=== PATIENT | female | born 1930 | race Caucasian/White ===

== ENCOUNTER 2018-02-03 15:39 | Inpatient (IN) | payer MEDICARE, OTHER ==
[~2018-02-03] VITALS: Ht 160 cm; Wt 72.8 kg
[2018-02-03] MEDS ORDERED: ALBUTEROL/IPRATROPIUM 2.5MG/0.5MG, 3 ML ONE (16:24)
[2018-02-03 16:30] LABS: BASOPHILS # (AUTO) 0.02 x10^3/uL (0-0.1); BASOPHILS % (AUTO) 0 % (0-1); EOSINOPHILS # (AUTO) 0.07 x10^3/uL (0-0.4); EOSINOPHILS % (AUTO) 1 % (1-7); LYMPHOCYTES # (AUTO) 1.14 x10^3/uL (1-3.4); LYMPHOCYTES % (AUTO) 14 % (22-44); MD NO; MEAN CORPUSCULAR HEMOGLOBIN 29.6 pg (27.0-34.8); MEAN CORPUSCULAR HGB CONC 33.2 g/dL (32.4-35.8); MEAN CORPUSCULAR VOLUME 89.3 fL (80-100); MEAN PLATELET VOLUME 9.2 fL (7.4-10.4); MONOCYTES # (AUTO) 0.52 x10^3/uL (0.2-0.8); MONOCYTES % (AUTO) 7 % (2-9); NEUTROPHILS % (AUTO) 78 % (42-75); PLATELET COUNT 260 x10^3/uL (130-400); RED BLOOD COUNT 5.55 x10^6/uL (3.82-5.3); RED CELL DISTRIBUTION WIDTH 14.9 % (9.6-15.2)
[2018-02-03] MEDS ORDERED: SODIUM CHLORIDE FLUSH 10ML SYR IVF ONE (16:30)
[2018-02-03] MEDS: ALBUTEROL/IPRATROPIUM 2.5MG/0.5MG, 3 ML NPPB ONE (16:30)
[2018-02-03 16:41] LABS: ALBUMIN 3.7 g/dL (3.4-5.0); ANION GAP 8 mmol/L (5-15); CALCIUM 8.6 mg/dL (8.5-10.1); CHLORIDE 107 mmol/L (98-107)
[2018-02-03 16:49] LABS: ALANINE AMINOTRANSFERASE 20 U/L (12-78); ALKALINE PHOSPHATASE 76 U/L (45-117); BILIRUBIN,TOTAL 0.5 mg/dL (0.2-1.0); CREATININE 1.26 mg/dL (0.55-1.02); TOTAL PROTEIN 7.2 g/dL (6.4-8.2); TROPONIN I < 0.015 ng/mL (0.000-0.045)
[2018-02-03] MEDS ORDERED: ALBU2.5V NEB (17:49)
[2018-02-03] MEDS ORDERED: DOXY50TA9 PO (17:49)
[2018-02-03] MEDS ORDERED: BUDE10.2 INH (17:51)
[2018-02-03] MEDS ORDERED: LISI40TA PO (17:51)
[2018-02-03] MEDS ORDERED: COLC0.6T37 PO (17:53)
[2018-02-03] MEDS ORDERED: NITR0.4T SL (17:53)
[2018-02-03] MEDS ORDERED: OMNIPAQUE 350 MG/ML, 100ML BOTTLE ONE (18:01)
[2018-02-03] MEDS ORDERED: DENO60DI IM (18:03)
[2018-02-03] MEDS ORDERED: LEVO25TA4 PO (18:03)
[2018-02-03] MEDS ORDERED: SODIUM CHLORIDE FLUSH 10ML SYR IVF PRN (20:00)
[2018-02-03 21:04] VITALS: BP 189/84
[2018-02-03] MEDS ORDERED: POLYETHYLENE GLYCOL 17 GM PACKET PO PRN (23:00)
[2018-02-03] MEDS ORDERED: ONDANSETRON 2MG/ML, 2ML IVPush PRN (23:00)
[2018-02-03] MEDS ORDERED: BISACODYL 10 MG SUPP PR PRN (23:00)
[2018-02-03] MEDS ORDERED: NITROGLYCERIN 0.4 MG BOTTLE (25 TABS) SL PRN (23:00)
[2018-02-03] MEDS ORDERED: hydrALAzine 20 MG/ML, 1ML IVPush PRN (23:00)
[2018-02-03] MEDS ORDERED: DOCUSATE 100 MG CAPSULE PO PRN (23:00)
[2018-02-03] MEDS: methylPREDNISolone SOD SUCC 40 MG/ML IVPush SCH (23:27)
[2018-02-03] MEDS: SODIUM CHLORIDE 0.9% 1,000 ML IV SCH (23:28)
[2018-02-03] MEDS: HEPARIN 5,000 UNITS/ML, 1ML SQ SCH (23:28)
[2018-02-03 23:50] LABS: TROPONIN I < 0.015 ng/mL (0.000-0.045)
[2018-02-04 00:02] VITALS: BP 158/77
[2018-02-04 05:39] LABS: ALANINE AMINOTRANSFERASE 18 U/L (12-78); ALBUMIN 3.1 g/dL (3.4-5.0); ANION GAP 7 mmol/L (5-15); CALCIUM 8.1 mg/dL (8.5-10.1); CHLORIDE 108 mmol/L (98-107)
[2018-02-04 05:42] LABS: TROPONIN I < 0.015 ng/mL (0.000-0.045)
[2018-02-04 05:43] LABS: ALKALINE PHOSPHATASE 66 U/L (45-117); BILIRUBIN,TOTAL 0.4 mg/dL (0.2-1.0); CHOL/HDL RATIO 3.1; CHOLESTEROL, TOTAL 195 mg/dL (140-239); CREATININE 1.15 mg/dL (0.55-1.02); HDL CHOL % 32 % (28-40); HDL CHOLESTEROL (DIRECT) 62 mg/dL (40-60); LDL CHOLESTEROL,CALCULATED 123 mg/dL (54-169); TOTAL PROTEIN 6.3 g/dL (6.4-8.2); TRIGLYCERIDES 50 mg/dL (50-200); VLDL CHOLESTEROL 10 mg/dL (0-25)
[2018-02-04 05:53] LABS: BASOPHILS % (AUTO) 0 % (0-1); EOSINOPHILS % (AUTO) 0 % (1-7); LYMPHOCYTES # (AUTO) 0.39 x10^3/uL (1-3.4); LYMPHOCYTES % (AUTO) 10 % (22-44); MD NO; MEAN CORPUSCULAR HEMOGLOBIN 29.7 pg (27.0-34.8); MEAN CORPUSCULAR HGB CONC 32.7 g/dL (32.4-35.8); MEAN CORPUSCULAR VOLUME 90.8 fL (80-100); MEAN PLATELET VOLUME 9.3 fL (7.4-10.4); MONOCYTES # (AUTO) 0.01 x10^3/uL (0.2-0.8); MONOCYTES % (AUTO) 0 % (2-9); NEUTROPHILS # (AUTO) 3.55 x10^3/uL (1.8-6.8); NEUTROPHILS % (AUTO) 90 % (42-75); PLATELET COUNT 202 x10^3/uL (130-400); RED BLOOD COUNT 5.09 x10^6/uL (3.82-5.3); RED CELL DISTRIBUTION WIDTH 14.4 % (9.6-15.2)
[2018-02-04] MEDS: methylPREDNISolone SOD SUCC 40 MG/ML IVPush SCH ×2 (06:03→11:03)
[2018-02-04] MEDS: HEPARIN 5,000 UNITS/ML, 1ML SQ SCH ×3 (06:03→23:42)
[2018-02-04] MEDS: ASPIRIN 81 MG TABLET EC PO SCH (06:03)
[2018-02-04 07:00] VITALS: BP 161/66
[2018-02-04] MEDS: ALBUTEROL SULFATE 2.5 MG/3 ML NPPB SCH ×3 (07:06→18:52)
[2018-02-04] MEDS ORDERED: REGADENOSON 0.4 MG/5 ML SYRINGE ONE (08:28)
[2018-02-04] MEDS: LEVOTHYROXINE 25 MCG TABLET PO SCH (08:47)
[2018-02-04] MEDS: FAMOTIDINE 20 MG TABLET PO SCH ×2 (11:03→20:11)
[2018-02-04] MEDS: SODIUM CHLORIDE 0.9% 1,000 ML IV SCH (12:20)
[2018-02-04 13:21] VITALS: BP 150/81
[2018-02-04] MEDS: LISINOPRIL 20 MG TABLET PO SCH (14:57)
[2018-02-04] MEDS: GUAIFENESIN 200 MG TABLET PO SCH ×2 (15:26→15:27)
[2018-02-04 19:33] VITALS: BP 186/72
[2018-02-04 20:08] VITALS: BP 166/75
[2018-02-05 01:01] VITALS: BP 149/78
[2018-02-05] MEDS: GUAIFENESIN 200 MG TABLET PO SCH ×4 (04:54→20:07)
[2018-02-05] MEDS: ASPIRIN 81 MG TABLET EC PO SCH (04:54)
[2018-02-05 05:18] LABS: BASOPHILS # (AUTO) 0.04 x10^3/uL (0-0.1); BASOPHILS % (AUTO) 1 % (0-1); EOSINOPHILS % (AUTO) 0 % (1-7); LYMPHOCYTES # (AUTO) 0.89 x10^3/uL (1-3.4); LYMPHOCYTES % (AUTO) 12 % (22-44); MD NO; MEAN CORPUSCULAR HEMOGLOBIN 29.4 pg (27.0-34.8); MEAN CORPUSCULAR HGB CONC 33.1 g/dL (32.4-35.8); MEAN CORPUSCULAR VOLUME 88.9 fL (80-100); MEAN PLATELET VOLUME 9.8 fL (7.4-10.4); MONOCYTES # (AUTO) 0.61 x10^3/uL (0.2-0.8); MONOCYTES % (AUTO) 8 % (2-9); NEUTROPHILS # (AUTO) 6.18 x10^3/uL (1.8-6.8); NEUTROPHILS % (AUTO) 80 % (42-75); PLATELET COUNT 215 x10^3/uL (130-400); RED BLOOD COUNT 4.99 x10^6/uL (3.82-5.3); RED CELL DISTRIBUTION WIDTH 14.5 % (9.6-15.2)
[2018-02-05 05:28] LABS: ALANINE AMINOTRANSFERASE 22 U/L (12-78); ALBUMIN 3.2 g/dL (3.4-5.0); ANION GAP 5 mmol/L (5-15); CALCIUM 8.1 mg/dL (8.5-10.1); CHLORIDE 109 mmol/L (98-107)
[2018-02-05 05:30] LABS: ALKALINE PHOSPHATASE 60 U/L (45-117); BILIRUBIN,TOTAL 0.4 mg/dL (0.2-1.0); TOTAL PROTEIN 5.9 g/dL (6.4-8.2)
[2018-02-05 06:37] VITALS: BP 154/69
[2018-02-05] MEDS: ALBUTEROL SULFATE 2.5 MG/3 ML NPPB SCH ×4 (07:05→20:00)
[2018-02-05] MEDS: LEVOTHYROXINE 25 MCG TABLET PO SCH (07:07)
[2018-02-05] MEDS: LISINOPRIL 20 MG TABLET PO SCH (07:08)
[2018-02-05] MEDS: HEPARIN 5,000 UNITS/ML, 1ML SQ SCH ×2 (08:27→16:35)
[2018-02-05] MEDS: FAMOTIDINE 20 MG TABLET PO SCH ×2 (08:29→20:07)
[2018-02-05] MEDS ORDERED: SODIUM CHLORIDE 0.9% 1,000 ML IV ONE (09:15)
[2018-02-05 10:05] VITALS: BP 162/67
[2018-02-05] MEDS: METOPROLOL TARTRATE 25 MG TABLET PO SCH ×2 (12:11→20:08)
[2018-02-05 13:12] VITALS: BP 129/58
[2018-02-05] MEDS ORDERED: METOPROLOL TARTRATE 25 MG TABLET PO SCH (18:00)
[2018-02-05 20:03] VITALS: BP 107/45
[2018-02-06 00:57] VITALS: BP 128/77
[2018-02-06] MEDS: HEPARIN 5,000 UNITS/ML, 1ML SQ SCH ×4 (01:02→22:48)
[2018-02-06 05:02] LABS: BASOPHILS # (AUTO) 0.01 x10^3/uL (0-0.1); BASOPHILS % (AUTO) 0 % (0-1); EOSINOPHILS # (AUTO) 0.02 x10^3/uL (0-0.4); EOSINOPHILS % (AUTO) 0 % (1-7); LYMPHOCYTES # (AUTO) 1.66 x10^3/uL (1-3.4); LYMPHOCYTES % (AUTO) 24 % (22-44); MD NO; MEAN CORPUSCULAR HEMOGLOBIN 29.2 pg (27.0-34.8); MEAN CORPUSCULAR HGB CONC 32.2 g/dL (32.4-35.8); MEAN CORPUSCULAR VOLUME 90.9 fL (80-100); MEAN PLATELET VOLUME 9.3 fL (7.4-10.4); MONOCYTES # (AUTO) 0.66 x10^3/uL (0.2-0.8); MONOCYTES % (AUTO) 9 % (2-9); NEUTROPHILS # (AUTO) 4.66 x10^3/uL (1.8-6.8); NEUTROPHILS % (AUTO) 67 % (42-75); PLATELET COUNT 193 x10^3/uL (130-400); RED BLOOD COUNT 4.81 x10^6/uL (3.82-5.3); RED CELL DISTRIBUTION WIDTH 14.8 % (9.6-15.2)
[2018-02-06 05:07] LABS: INTERNATIONAL NORMALIZED RATIO 0.97 (0.93-1.1)
[2018-02-06 05:14] LABS: CHLORIDE 107 mmol/L (98-107)
[2018-02-06 05:28] LABS: ALANINE AMINOTRANSFERASE 19 U/L (12-78); ALBUMIN 3.1 g/dL (3.4-5.0); ALKALINE PHOSPHATASE 55 U/L (45-117); ANION GAP 8 mmol/L (5-15); BILIRUBIN,TOTAL 0.5 mg/dL (0.2-1.0); CALCIUM 8.3 mg/dL (8.5-10.1); CREATININE 1.26 mg/dL (0.55-1.02); TOTAL PROTEIN 5.7 g/dL (6.4-8.2)
[2018-02-06 06:10] VITALS: BP 177/76
[2018-02-06] MEDS: GUAIFENESIN 200 MG TABLET PO SCH ×4 (06:12→20:53)
[2018-02-06] MEDS: ASPIRIN 81 MG TABLET EC PO SCH (06:12)
[2018-02-06] MEDS: METOPROLOL TARTRATE 25 MG TABLET PO SCH ×2 (06:13→17:02)
[2018-02-06 07:24] VITALS: BP 150/78
[2018-02-06] MEDS: LEVOTHYROXINE 25 MCG TABLET PO SCH (07:25)
[2018-02-06] MEDS: LISINOPRIL 20 MG TABLET PO SCH (07:26)
[2018-02-06] MEDS: ALBUTEROL SULFATE 2.5 MG/3 ML NPPB SCH ×4 (07:30→20:00)
[2018-02-06] MEDS: SODIUM CHLORIDE 0.9% 1,000 ML IV SCH ×3 (08:15→20:57)
[2018-02-06] MEDS: FAMOTIDINE 20 MG TABLET PO SCH ×2 (08:15→20:53)
[2018-02-06 08:25] VITALS: BP 160/66
[2018-02-06] MEDS ORDERED: VERAPAMIL 2.5 MG/ML, 2ML ONE (11:06)
[2018-02-06] MEDS ORDERED: TICAGRELOR 90 MG TABLET ONE (11:06)
[2018-02-06] MEDS ORDERED: FENTANYL PF 100 MCG/2ML ONE (11:06)
[2018-02-06] MEDS ORDERED: NITROGLYCERIN 5 MG/ML, 10ML ONE (11:06)
[2018-02-06] MEDS ORDERED: MIDAZOLAM 1 MG/ML, 5ML ONE (11:06)
[2018-02-06] MEDS ORDERED: LIDOCAINE 2%, 2ML ONE (11:07)
[2018-02-06] MEDS ORDERED: BIVALIRUDIN 250 MG ONE ×2 (11:07→13:13)
[2018-02-06] MEDS ORDERED: HEPARIN 1,000 UNITS/ML, 10ML ONE (11:07)
[2018-02-06] MEDS ORDERED: ASPIRIN 325 MG TABLET EC ONE (13:13)
[2018-02-06] MEDS ORDERED: BIVALIRUDIN 250 MG in DEXTROSE 5% 50 ML IV SCH (13:24)
[2018-02-06 13:49] VITALS: BP 147/71
[2018-02-06] MEDS: SODIUM CHLORIDE 0.45% 1,000 ML IV SCH ×2 (13:53→18:32)
[2018-02-06 20:45] VITALS: BP 148/73
[2018-02-06] MEDS: TICAGRELOR 90 MG TABLET PO SCH (20:54)
[2018-02-06 21:08] LABS: ALBUMIN 3.4 g/dL (3.4-5.0); ANION GAP 8 mmol/L (5-15); CALCIUM 7.8 mg/dL (8.5-10.1); CHLORIDE 104 mmol/L (98-107); CREATININE 1.41 mg/dL (0.55-1.02)
[2018-02-07 01:08] VITALS: BP 159/76
[2018-02-07] MEDS: ALBUTEROL SULFATE 2.5 MG/3 ML NPPB SCH ×5 (01:10→20:00)
[2018-02-07] MEDS: TEMPLATE NON-FORMULARY MED. (Budesonide/Formoterol Fumarate (Symbicort 160-4.5 Mcg Inhaler INH PRN ×2 (01:23→20:13)
[2018-02-07] MEDS: ACETAMINOPHEN 325 MG TABLET PO PRN ×2 (02:03→06:32)
[2018-02-07 05:22] LABS: BASOPHILS # (AUTO) 0.01 x10^3/uL (0-0.1); BASOPHILS % (AUTO) 0 % (0-1); EOSINOPHILS # (AUTO) 0.01 x10^3/uL (0-0.4); EOSINOPHILS % (AUTO) 0 % (1-7); LYMPHOCYTES # (AUTO) 0.36 x10^3/uL (1-3.4); LYMPHOCYTES % (AUTO) 4 % (22-44); MD NO; MEAN CORPUSCULAR HEMOGLOBIN 29.9 pg (27.0-34.8); MEAN CORPUSCULAR HGB CONC 33.1 g/dL (32.4-35.8); MEAN CORPUSCULAR VOLUME 90.5 fL (80-100); MEAN PLATELET VOLUME 9.1 fL (7.4-10.4); MONOCYTES # (AUTO) 0.66 x10^3/uL (0.2-0.8); MONOCYTES % (AUTO) 8 % (2-9); NEUTROPHILS # (AUTO) 7.66 x10^3/uL (1.8-6.8); NEUTROPHILS % (AUTO) 88 % (42-75); PLATELET COUNT 181 x10^3/uL (130-400); RED BLOOD COUNT 4.36 x10^6/uL (3.82-5.3); RED CELL DISTRIBUTION WIDTH 14.9 % (9.6-15.2)
[2018-02-07 05:26] LABS: ANION GAP 6 mmol/L (5-15); CALCIUM 7.2 mg/dL (8.5-10.1); CHLORIDE 108 mmol/L (98-107); CREATININE 1.22 mg/dL (0.55-1.02)
[2018-02-07] MEDS: GUAIFENESIN 200 MG TABLET PO SCH ×4 (06:21→20:14)
[2018-02-07] MEDS: ASPIRIN 81 MG TABLET EC PO SCH (06:21)
[2018-02-07] MEDS: METOPROLOL TARTRATE 25 MG TABLET PO SCH ×2 (06:22→17:07)
[2018-02-07] MEDS: HEPARIN 5,000 UNITS/ML, 1ML SQ SCH ×3 (07:30→19:27)
[2018-02-07] MEDS: ALBUTEROL SULFATE 2.5 MG/3 ML NPPB PRN ×2 (07:36→17:18)
[2018-02-07 07:43] VITALS: BP 113/63
[2018-02-07] MEDS: FAMOTIDINE 20 MG TABLET PO SCH ×2 (07:55→20:14)
[2018-02-07] MEDS: TICAGRELOR 90 MG TABLET PO SCH ×2 (07:55→20:15)
[2018-02-07] MEDS: LISINOPRIL 20 MG TABLET PO SCH (07:55)
[2018-02-07] MEDS: LEVOTHYROXINE 25 MCG TABLET PO SCH (07:59)
[2018-02-07] MEDS: SODIUM CHLORIDE 0.9% 1,000 ML IV SCH (07:59)
[2018-02-07 15:00] VITALS: BP 138/72
[2018-02-07 18:32] VITALS: BP 145/75
[2018-02-08 01:35] VITALS: BP 145/68
[2018-02-08 05:09] LABS: BASOPHILS # (AUTO) 0.01 x10^3/uL (0-0.1); BASOPHILS % (AUTO) 0 % (0-1); EOSINOPHILS # (AUTO) 0.04 x10^3/uL (0-0.4); EOSINOPHILS % (AUTO) 1 % (1-7); LYMPHOCYTES # (AUTO) 0.82 x10^3/uL (1-3.4); LYMPHOCYTES % (AUTO) 15 % (22-44); MD NO; MEAN CORPUSCULAR HEMOGLOBIN 29.2 pg (27.0-34.8); MEAN CORPUSCULAR HGB CONC 32.4 g/dL (32.4-35.8); MEAN CORPUSCULAR VOLUME 90.3 fL (80-100); MEAN PLATELET VOLUME 9.1 fL (7.4-10.4); MONOCYTES # (AUTO) 0.52 x10^3/uL (0.2-0.8); MONOCYTES % (AUTO) 10 % (2-9); NEUTROPHILS # (AUTO) 4.09 x10^3/uL (1.8-6.8); NEUTROPHILS % (AUTO) 75 % (42-75); PLATELET COUNT 168 x10^3/uL (130-400); RED CELL DISTRIBUTION WIDTH 14.7 % (9.6-15.2)
[2018-02-08 05:12] LABS: ALBUMIN 2.7 g/dL (3.4-5.0); ANION GAP 6 mmol/L (5-15); CALCIUM 7.7 mg/dL (8.5-10.1); CHLORIDE 108 mmol/L (98-107)
[2018-02-08 05:17] LABS: ALANINE AMINOTRANSFERASE 19 U/L (12-78); ALKALINE PHOSPHATASE 45 U/L (45-117); BILIRUBIN,TOTAL 0.5 mg/dL (0.2-1.0); CREATININE 1.09 mg/dL (0.55-1.02); TOTAL PROTEIN 4.8 g/dL (6.4-8.2)
[2018-02-08] MEDS: ASPIRIN 81 MG TABLET EC PO SCH (05:42)
[2018-02-08] MEDS: METOPROLOL TARTRATE 25 MG TABLET PO SCH (05:43)
[2018-02-08] MEDS: GUAIFENESIN 200 MG TABLET PO SCH ×2 (05:43→10:37)
[2018-02-08] MEDS: ALBUTEROL SULFATE 2.5 MG/3 ML NPPB SCH ×3 (06:41→14:09)
[2018-02-08 07:25] VITALS: BP 142/83
[2018-02-08] MEDS: HEPARIN 5,000 UNITS/ML, 1ML SQ SCH ×2 (07:30→14:13)
[2018-02-08] MEDS: FAMOTIDINE 20 MG TABLET PO SCH (08:13)
[2018-02-08] MEDS: TICAGRELOR 90 MG TABLET PO SCH (08:13)
[2018-02-08] MEDS: LISINOPRIL 20 MG TABLET PO SCH (08:14)
[2018-02-08] MEDS: LEVOTHYROXINE 25 MCG TABLET PO SCH (08:19)
[2018-02-08] MEDS ORDERED: METO25TA35 PO (11:32)
[2018-02-08] MEDS ORDERED: ASPI-621 PO (11:32)
[2018-02-08] MEDS ORDERED: PRED5TAB PO (11:32)
[2018-02-08] MEDS ORDERED: SIMV20TA PO (11:33)
[2018-02-08] MEDS ORDERED: DOXY100T PO (11:34)
[2018-02-08] MEDS ORDERED: DOXYCYCLINE 100MG TABLET PO SCH (12:00)
[2018-02-08 12:20] VITALS: BP 154/76
[2018-02-08] MEDS ORDERED: TICA90TA PO (14:44)
== END 2018-02-08 16:15 | disposition home or self-care (01) | DRG 246 ==
LOC: ED 18:18 → EDIP 19:58 → 5SO 20:59 → DCLOUNGE 02-08 15:53
PROVIDERS: ADMIT Hospitalist; ATTEND Hospitalist
PROC: 027034Z Dilation of Coronary Artery, One Artery with Drug-eluting Intraluminal Device, Percutaneous Approach (ICD-10-PCS; principal; 2018-02-06)
PROC: 4A023N7 Measurement of Cardiac Sampling and Pressure, Left Heart, Percutaneous Approach (ICD-10-PCS; 2018-02-06)
PROC: B2111ZZ Fluoroscopy of Multiple Coronary Arteries using Low Osmolar Contrast (ICD-10-PCS; 2018-02-06)
PROC: B2151ZZ Fluoroscopy of Left Heart using Low Osmolar Contrast (ICD-10-PCS; 2018-02-06)
DX: I25.110 Atherosclerotic heart disease of native coronary artery with unstable angina pectoris (principal); J96.01 Acute respiratory failure with hypoxia; N17.0 Acute kidney failure with tubular necrosis; E43 Unspecified severe protein-calorie malnutrition; I50.43 Acute on chronic combined systolic (congestive) and diastolic (congestive) heart failure; I24.9 Acute ischemic heart disease, unspecified; J44.1 Chronic obstructive pulmonary disease with (acute) exacerbation; D64.9 Anemia, unspecified; E03.9 Hypothyroidism, unspecified; R91.1 Solitary pulmonary nodule; E78.5 Hyperlipidemia, unspecified; E78.00 Pure hypercholesterolemia, unspecified; I27.20 Pulmonary hypertension, unspecified; E05.90 Thyrotoxicosis, unspecified without thyrotoxic crisis or storm; I11.0 Hypertensive heart disease with heart failure; Z87.891 Personal history of nicotine dependence; Z68.28 Body mass index [BMI] 28.0-28.9, adult; Z82.49 Family history of ischemic heart disease and other diseases of the circulatory system; Y93.89 Activity, other specified; Y92.89 Other specified places as the place of occurrence of the external cause; Y99.8 Other external cause status; Z88.1 Allergy status to other antibiotic agents
CPT/HCPCS: 36415; 71046; 71275; 78452; 80048; 80053; 80061; 82040; 83735; 83880; 84100; 84443; 84484; 85014; 85018; 85025; 85610; 93005; 93017; 93306; 93458; 94640; 99156; 99157; 99285; C1769; C1894; C9600; J0583; J1644; J2250; J2785; J3010; J3490; J7613; Q9967; A9502; C1725; C1874; C1887; C9898; J2920; J7030; J7512

== ENCOUNTER 2018-03-14 16:53 | Inpatient (IN) | payer MEDICARE ==
[~2018-03-14] VITALS: Ht 160 cm; Wt 61.8 kg
[~2018-03-14 16:53] MED LIST: ALBU2.5V NEB; ASPI-621 PO; BUDE10.2 INH; COLC0.6T37 PO; DENO60DI IM; DOXY100T PO; DOXY50TA9 PO; LEVO25TA4 PO; LISI40TA PO; METO25TA35 PO; NITR0.4T SL; PRED5TAB PO; SIMV20TA PO; TICA90TA PO
[2018-03-14 17:34] LABS: BASOPHILS # (AUTO) 0.01 x10^3/uL (0-0.1); BASOPHILS % (AUTO) 0 % (0-1); EOSINOPHILS # (AUTO) 0.13 x10^3/uL (0-0.4); EOSINOPHILS % (AUTO) 2 % (1-7); LYMPHOCYTES # (AUTO) 0.89 x10^3/uL (1-3.4); LYMPHOCYTES % (AUTO) 11 % (22-44); MD NO; MEAN CORPUSCULAR HEMOGLOBIN 29.8 pg (27.0-34.8); MEAN CORPUSCULAR HGB CONC 32.9 g/dL (32.4-35.8); MEAN CORPUSCULAR VOLUME 90.6 fL (80-100); MEAN PLATELET VOLUME 9.4 fL (7.4-10.4); MONOCYTES # (AUTO) 0.57 x10^3/uL (0.2-0.8); MONOCYTES % (AUTO) 7 % (2-9); NEUTROPHILS # (AUTO) 6.64 x10^3/uL (1.8-6.8); NEUTROPHILS % (AUTO) 81 % (42-75); PLATELET COUNT 246 x10^3/uL (130-400); RED CELL DISTRIBUTION WIDTH 15.6 % (9.6-15.2)
[2018-03-14 17:37] LABS: INTERNATIONAL NORMALIZED RATIO 0.92 (0.93-1.1); PROTHROMBIN TIME 9.6 Seconds (9.6-11.5)
[2018-03-14 17:41] LABS: ALANINE AMINOTRANSFERASE 23 U/L (12-78); ALBUMIN 3.7 g/dL (3.4-5.0); ANION GAP 7 mmol/L (5-15); CALCIUM 9.1 mg/dL (8.5-10.1); CHLORIDE 103 mmol/L (98-107); CREATININE 1.14 mg/dL (0.55-1.02)
[2018-03-14 17:45] LABS: ALKALINE PHOSPHATASE 70 U/L (45-117); BILIRUBIN,TOTAL 0.6 mg/dL (0.2-1.0); TOTAL PROTEIN 7.2 g/dL (6.4-8.2); TROPONIN I < 0.015 ng/mL (0.000-0.045)
[2018-03-14] MEDS ORDERED: METOPROLOL 1 MG/ML, 5ML ONE (18:13)
[2018-03-14] MEDS ORDERED: CHOL100011 PO (18:21)
[2018-03-14] MEDS ORDERED: SENN1TAB67 PO (18:21)
[2018-03-14] MEDS ORDERED: CRAN300T PO (18:22)
[2018-03-14] MEDS ORDERED: METOPROLOL 1 MG/ML, 5ML IVPush ONE (18:30)
[2018-03-14] MEDS ORDERED: NITROGLYCERIN OINT 2%, 1GM TP ONE ×2 (18:56→19:00)
[2018-03-14] MEDS ORDERED: OMNIPAQUE 350 MG/ML, 100ML BOTTLE ONE (19:19)
[2018-03-14] MEDS ORDERED: SODIUM CHLORIDE FLUSH 10ML SYR IVF PRN (19:30)
[2018-03-14] MEDS ORDERED: hydrALAzine 20 MG/ML, 1ML ONE (19:32)
[2018-03-14] MEDS ORDERED: ONDANSETRON 2MG/ML, 2ML IVPush PRN (20:00)
[2018-03-14] MEDS ORDERED: DOCUSATE 100 MG CAPSULE PO PRN (20:00)
[2018-03-14] MEDS ORDERED: ENALAPRILAT 1.25 MG/ML, 2ML IVPush PRN (20:00)
[2018-03-14] MEDS ORDERED: POLYETHYLENE GLYCOL 17 GM PACKET PO PRN (20:00)
[2018-03-14] MEDS ORDERED: hydrALAzine 20 MG/ML, 1ML IVPush PRN (20:00)
[2018-03-14] MEDS ORDERED: ACETAMINOPHEN 325 MG TABLET PO PRN (20:00)
[2018-03-14] MEDS ORDERED: NITROGLYCERIN 0.4 MG BOTTLE (25 TABS) SL PRN (20:00)
[2018-03-14] MEDS ORDERED: hydrALAzine 20 MG/ML, 1ML IV ONE (20:00)
[2018-03-14 22:00] VITALS: BP 169/83
[2018-03-14] MEDS: METOPROLOL TARTRATE 25 MG TABLET PO SCH (22:25)
[2018-03-14] MEDS: SIMVASTATIN 20 MG TABLET PO SCH (22:25)
[2018-03-14] MEDS: TICAGRELOR 90 MG TABLET PO SCH (22:25)
[2018-03-14] MEDS: SODIUM CHLORIDE FLUSH 10ML SYR IVF SCH (22:26)
[2018-03-15] VITALS (7 sets, daily range): BP systolic 119–178; BP diastolic 63–76
[2018-03-15] MEDS: ALBUTEROL SULFATE 2.5 MG/3 ML NPPB PRN ×2 (05:12→14:21)
[2018-03-15] MEDS: METOPROLOL TARTRATE 25 MG TABLET PO SCH ×2 (06:04→18:08)
[2018-03-15] MEDS: SODIUM CHLORIDE FLUSH 10ML SYR IVF SCH ×2 (08:57→20:56)
[2018-03-15] MEDS: SENNA/DOCUSATE TABLET PO SCH (08:57)
[2018-03-15] MEDS: TICAGRELOR 90 MG TABLET PO SCH ×2 (08:57→20:56)
[2018-03-15] MEDS: LISINOPRIL 20 MG TABLET PO SCH (08:57)
[2018-03-15] MEDS: FLUTICASONE/VILANTEROL 200-25MCG/INH INH SCH (11:06)
[2018-03-15 17:14] LABS: TROPONIN I < 0.015 ng/mL (0.000-0.045)
[2018-03-15] MEDS: SIMVASTATIN 20 MG TABLET PO SCH (20:56)
[2018-03-16 02:14] VITALS: BP 111/61
[2018-03-16] MEDS: METOPROLOL TARTRATE 25 MG TABLET PO SCH (05:50)
[2018-03-16 07:51] LABS: BASOPHILS # (AUTO) 0.01 x10^3/uL (0-0.1); BASOPHILS % (AUTO) 0 % (0-1); EOSINOPHILS # (AUTO) 0.11 x10^3/uL (0-0.4); EOSINOPHILS % (AUTO) 2 % (1-7); LYMPHOCYTES # (AUTO) 0.58 x10^3/uL (1-3.4); LYMPHOCYTES % (AUTO) 8 % (22-44); MD NO; MEAN CORPUSCULAR HEMOGLOBIN 29.5 pg (27.0-34.8); MEAN CORPUSCULAR HGB CONC 32.9 g/dL (32.4-35.8); MEAN CORPUSCULAR VOLUME 89.8 fL (80-100); MEAN PLATELET VOLUME 9.4 fL (7.4-10.4); MONOCYTES # (AUTO) 0.49 x10^3/uL (0.2-0.8); MONOCYTES % (AUTO) 7 % (2-9); NEUTROPHILS # (AUTO) 6.19 x10^3/uL (1.8-6.8); NEUTROPHILS % (AUTO) 84 % (42-75); PLATELET COUNT 236 x10^3/uL (130-400); RED BLOOD COUNT 4.76 x10^6/uL (3.82-5.3); RED CELL DISTRIBUTION WIDTH 15.6 % (9.6-15.2)
[2018-03-16 08:01] LABS: ANION GAP 6 mmol/L (5-15); CHLORIDE 104 mmol/L (98-107); CREATININE 1.24 mg/dL (0.55-1.02)
[2018-03-16] MEDS ORDERED: METO25TA35 PO (08:19)
[2018-03-16] MEDS: FLUTICASONE/VILANTEROL 200-25MCG/INH INH SCH (08:55)
[2018-03-16] MEDS: SODIUM CHLORIDE FLUSH 10ML SYR IVF SCH (08:55)
[2018-03-16] MEDS: TICAGRELOR 90 MG TABLET PO SCH (08:56)
[2018-03-16] MEDS: LISINOPRIL 20 MG TABLET PO SCH (08:56)
[2018-03-16] MEDS: SENNA/DOCUSATE TABLET PO SCH (08:56)
[2018-03-16 09:01] VITALS: BP 124/71
== END 2018-03-16 09:48 | disposition home or self-care (01) | DRG 305 ==
LOC: ED 17:54 → EDIP 19:24 → SUATTDRO 19:44 → 5SO 21:16 → DCLOUNGE 03-16 09:36
PROVIDERS: ADMIT Hospitalist; ATTEND Hospitalist
DX: I16.0 Hypertensive urgency (principal); J96.11 Chronic respiratory failure with hypoxia; I27.20 Pulmonary hypertension, unspecified; I50.32 Chronic diastolic (congestive) heart failure; E03.9 Hypothyroidism, unspecified; E11.9 Type 2 diabetes mellitus without complications; E78.00 Pure hypercholesterolemia, unspecified; I11.0 Hypertensive heart disease with heart failure; I25.118 Atherosclerotic heart disease of native coronary artery with other forms of angina pectoris; I25.2 Old myocardial infarction; I70.0 Atherosclerosis of aorta; J44.9 Chronic obstructive pulmonary disease, unspecified; Z95.5 Presence of coronary angioplasty implant and graft; Z96.659 Presence of unspecified artificial knee joint; R91.1 Solitary pulmonary nodule
CPT/HCPCS: 36415; 71045; 71275; 80048; 80053; 83880; 84484; 85025; 85610; 85730; 93005; 94640; 96374; 96375; J7613; Q9967; J0360

== ENCOUNTER → 2018-04-10 | Outpatient (CLI) | payer MEDICARE ==
[~2018-04-10] MED LIST changes: +CHOL100011 PO; +CRAN300T PO; +SENN1TAB67 PO
== END | disposition home or self-care (01) ==
LOC: CARD 14:14
PROVIDERS: ATTEND Internal Medicine Cardiovascular Disease
DX: J44.1 Chronic obstructive pulmonary disease with (acute) exacerbation (principal)
CPT/HCPCS: 94060; 94726; 94729

== ENCOUNTER → 2018-07-20 | Outpatient (CLI) | payer MEDICARE | END | disposition home or self-care (01) | LOC: CFH 12:48 | PROVIDERS: ATTEND Family Medicine | DX: J43.2 Centrilobular emphysema (principal); M48.54XA Collapsed vertebra, not elsewhere classified, thoracic region, initial encounter for fracture; Z88.1 Allergy status to other antibiotic agents; Z87.891 Personal history of nicotine dependence | CPT/HCPCS: 71250 ==

== ENCOUNTER 2018-11-06 10:22 | Inpatient (IN) | payer MEDICARE ==
[~2018-11-06] VITALS: Ht 157.5 cm; Wt 69.0 kg
[~2018-11-06 10:22] MED LIST changes: -ASPI-621 PO; +ASPI81TA45 PO
[2018-11-06] MEDS ORDERED: AZITHROMYCIN 500 MG in SODIUM CHLORIDE 0.9% 250 ML IVPB ONE (11:00)
[2018-11-06] MEDS ORDERED: CEFTRIAXONE PMX 1GM/50ML 50 ML IVPB ONE (11:00)
[2018-11-06] MEDS ORDERED: SODIUM CHLORIDE FLUSH 10ML SYR IVF ONE (11:00)
[2018-11-06 11:37] LABS: MEAN CORPUSCULAR HEMOGLOBIN 29.3 pg (27.0-34.8); MEAN CORPUSCULAR HGB CONC 32.7 g/dL (32.4-35.8); MEAN CORPUSCULAR VOLUME 89.3 fL (80-100); MEAN PLATELET VOLUME 8.5 fL (7.4-10.4); PLATELET COUNT 254 x10^3/uL (130-400); RED BLOOD COUNT 4.07 x10^6/uL (3.82-5.3); RED CELL DISTRIBUTION WIDTH 14.3 % (9.6-15.2)
[2018-11-06] MEDS ORDERED: CEFTRIAXONE PMX 1GM/50ML 50 ML ONE (11:37)
[2018-11-06 11:47] LABS: ALBUMIN 2.8 g/dL (3.4-5.0); ANION GAP 7 mmol/L (5-15); CHLORIDE 98 mmol/L (98-107)
[2018-11-06 11:54] LABS: ALANINE AMINOTRANSFERASE 82 U/L (12-78); ALKALINE PHOSPHATASE 79 U/L (45-117); BILIRUBIN,TOTAL 0.3 mg/dL (0.2-1.0); CREATININE 1.74 mg/dL (0.55-1.02); TOTAL PROTEIN 6.7 g/dL (6.4-8.2); TROPONIN I < 0.015 ng/mL (0.000-0.045)
--- NOTE | 2018-11-06 12:00 | NUR ---
PT AMBULATES WITH STEADY GAIT AND BALANCE IN RESTROOM. PT PUSHED IN WHEELCHAIR TO RESTROOM DUE TO OXYGEN TANK NEED. COLLECTED PT'S SPUTUM SAMPLE. PROVIDED PT MEDICATIONS PER EMAR. RADHAN. NO NEEDS EXPRESSED AT THIS TIME. PT SITTING ON GURNEY CONNECTED TO ALL MONITORS AND WATCHING TV. CALL LIGHT WITHIN REACH.
--- NOTE | 2018-11-06 12:06 | NUR ---
LATE NOTE ENTRY FOR 1022 PT BROUGHT IN BY EMS WITH C/O SOB ON EXERTION WITH PRODUCTIVE COUGH FOR THREE DAYS. PT HAS UNLABORED RESPIRATIONS EQUAL BILATERALLY AND IS WEARING 2L OXYGEN VIA NASAL CANNULA. PT WEARS 2L OXYGEN VIA NASAL CANNULA / AT HOME. PT IS AOX4, HAS STEADY GAIT AND BALANCE, AND SKIN IS PINK, WARM, AND DRY. PT PROVIDED SPUTUM SAMPLE THAT IS THICK, GREEN, AND WHITE. NADN. PT CONNECTED TO ALL MONITORS. ALL SAFETY MEASURES IN PLACE. NO NEEDS EXPRESSED AT THIS TIME.
[2018-11-06 12:07] LABS: BASOPHILS % (AUTO) 0 % (0-1); EOSINOPHILS % (AUTO) 0 % (1-7); LYMPHOCYTES # (AUTO) 0.36 x10^3/uL (1-3.4); LYMPHOCYTES % (AUTO) 2 % (22-44); MD SCAN; MONOCYTES # (AUTO) 0.62 x10^3/uL (0.2-0.8); MONOCYTES % (AUTO) 4 % (2-9); NEUTROPHILS # (AUTO) 14.73 x10^3/uL (1.8-6.8); NEUTROPHILS % (AUTO) 94 % (42-75)
--- NOTE | 2018-11-06 12:59 | NUR ---
Rocephin complete. Zithromax hung. Diet tray order per patient request and MD order. Provided with water. No other needs.
[2018-11-06] MEDS ORDERED: SODIUM CHLORIDE FLUSH 10ML SYR IVF PRN (13:00)
[2018-11-06] MEDS: SODIUM CHLORIDE 0.9% 1,000 ML IV SCH (13:27)
[2018-11-06] MEDS ORDERED: SODIUM CHLORIDE 0.9% 1,000ML IVBOLUS ONE (13:30)
[2018-11-06] MEDS ORDERED: NITROGLYCERIN 0.4 MG BOTTLE (25 TABS) SL PRN (13:30)
[2018-11-06] MEDS: ALBUTEROL/IPRATROPIUM 2.5MG/0.5MG, 3 ML HHN SCH ×2 (13:30→19:30)
[2018-11-06] MEDS ORDERED: (Budesonide/Formoterol Fumarate (Symbicort 160-4.5 Mcg Inhaler INH PRN (13:30)
[2018-11-06] MEDS ORDERED: LABETALOL 5MG/ML, 20ML IVPush PRN (13:30)
[2018-11-06] MEDS ORDERED: GUAIFENESIN/DM 200-20MG, 10ML UDC PO PRN (13:30)
[2018-11-06] MEDS ORDERED: ACETAMINOPHEN 325 MG TABLET PO PRN (13:30)
[2018-11-06] MEDS ORDERED: ALBUTEROL SULFATE 2.5 MG/3 ML NEB PRN (13:30)
[2018-11-06] MEDS ORDERED: ONDANSETRON 2MG/ML, 2ML IVPush PRN (13:30)
--- NOTE | 2018-11-06 13:36 | NUR ---
PT HAS PIV MEDS INFUSING PER EMAR. NADN. PT RESTING ON GURNEY CONNECTED TO ALL MONITORS AND ALL SAFETY MEASURES IN PLACE. CALL LIGHT IS WITHIN REACH. PT REQUESTING FOOD.
[2018-11-06] MEDS ORDERED: ACET-1600 PO (13:45)
[2018-11-06] MEDS ORDERED: CLOP75TA PO (13:45)
[2018-11-06] MEDS ORDERED: FLUT1BLS3 INH (13:45)
--- NOTE | 2018-11-06 13:55 | NUR ---
PROVIDED PT CRACKERS AND WATER. PT APPRECIATIVE.
--- NOTE | 2018-11-06 14:16 | NUR ---
PROVIDED REPORT TO [facility] G[facility]BLE. ALL QUESTIONS ANSWERED. PT READY TO TRANSFER TO FLOOR FROM ED.
[2018-11-06] MEDS: HEPARIN 5,000 UNITS/ML, 1ML SQ SCH ×2 (14:30→22:30)
[2018-11-06 15:00] VITALS: BP 154/64
[2018-11-06] MEDS ORDERED: CEFTRIAXONE PMX 1GM/50ML 50 ML IV SCH (15:00)
[2018-11-06] MEDS ORDERED: AZITHROMYCIN 500 MG in SODIUM CHLORIDE 0.9% 250 ML IV SCH (15:00)
[2018-11-06] MEDS: methylPREDNISolone SOD SUCC 125 MG/2 ML IVPush SCH ×2 (15:13→21:10)
[2018-11-06] MEDS: GUAIFENESIN 200 MG TABLET PO SCH ×2 (15:17→21:11)
[2018-11-06 15:22] LABS: TROPONIN I < 0.015 ng/mL (0.000-0.045)
--- NOTE | 2018-11-06 16:51 | NUR ---
LATE NOTE ENTRY FOR 1420 PT TRANSFERED TO FLOOR FROM ED AND LEFT WITH ALL PERSONAL BELONGINGS. PT LEFT PIV MEDS INFUSING PER EMAR.
[2018-11-06 16:53] LABS: RAPID INFLUENZA A Negative (Negative); RAPID INFLUENZA B Negative (Negative)
[2018-11-06] MEDS: METOPROLOL TARTRATE 25 MG TABLET PO SCH (17:31)
[2018-11-06 19:57] VITALS: BP 149/71
[2018-11-06] MEDS: TICAGRELOR 90 MG TABLET PO SCH (21:00)
[2018-11-06 21:07] LABS: TROPONIN I < 0.015 ng/mL (0.000-0.045)
[2018-11-06] MEDS: SIMVASTATIN 20 MG TABLET PO SCH (21:11)
[2018-11-07 01:55] VITALS: BP 137/72
[2018-11-07] MEDS: methylPREDNISolone SOD SUCC 125 MG/2 ML IVPush SCH ×4 (03:30→21:39)
[2018-11-07] MEDS ORDERED: LEVOTHYROXINE 50 MCG TABLET ONE (05:19)
[2018-11-07] MEDS: LEVOTHYROXINE 50 MCG TABLET PO SCH (05:20)
[2018-11-07] MEDS: SODIUM CHLORIDE 0.9% 1,000 ML IV SCH (05:20)
[2018-11-07] MEDS: GUAIFENESIN 200 MG TABLET PO SCH ×4 (05:20→21:38)
[2018-11-07] MEDS: METOPROLOL TARTRATE 25 MG TABLET PO SCH ×2 (05:21→17:55)
[2018-11-07] MEDS: ASPIRIN 81 MG TABLET EC PO SCH (05:21)
[2018-11-07 05:41] LABS: MEAN CORPUSCULAR HEMOGLOBIN 29.5 pg (27.0-34.8); MEAN CORPUSCULAR HGB CONC 32.7 g/dL (32.4-35.8); MEAN CORPUSCULAR VOLUME 90.2 fL (80-100); MEAN PLATELET VOLUME 8.8 fL (7.4-10.4); PLATELET COUNT 257 x10^3/uL (130-400); RED BLOOD COUNT 3.94 x10^6/uL (3.82-5.3)
[2018-11-07 05:51] LABS: ALBUMIN 2.5 g/dL (3.4-5.0); ANION GAP 9 mmol/L (5-15); CALCIUM 7.4 mg/dL (8.5-10.1); CHLORIDE 106 mmol/L (98-107)
[2018-11-07 05:55] LABS: ALANINE AMINOTRANSFERASE 69 U/L (12-78); ALKALINE PHOSPHATASE 75 U/L (45-117); BILIRUBIN,TOTAL 0.3 mg/dL (0.2-1.0); CREATININE 1.62 mg/dL (0.55-1.02); TOTAL PROTEIN 6.2 g/dL (6.4-8.2)
[2018-11-07 05:59] LABS: BASOPHILS % (AUTO) 0 % (0-1); EOSINOPHILS % (AUTO) 0 % (1-7); LYMPHOCYTES # (AUTO) 0.41 x10^3/uL (1-3.4); LYMPHOCYTES % (AUTO) 3 % (22-44); MD SCAN; MONOCYTES # (AUTO) 0.04 x10^3/uL (0.2-0.8); MONOCYTES % (AUTO) 0 % (2-9); NEUTROPHILS # (AUTO) 12.11 x10^3/uL (1.8-6.8); NEUTROPHILS % (AUTO) 96 % (42-75)
[2018-11-07] MEDS: HEPARIN 5,000 UNITS/ML, 1ML SQ SCH ×3 (06:30→22:30)
[2018-11-07 06:50] VITALS: BP 138/69
[2018-11-07] MEDS: ALBUTEROL SULFATE 2.5 MG/3 ML NPPB SCH ×2 (08:00→20:12)
[2018-11-07] MEDS: BUDESONIDE 0.5 MG/2 ML INHA INH SCH ×2 (08:00→20:12)
[2018-11-07] MEDS: TICAGRELOR 90 MG TABLET PO SCH ×2 (08:16→21:00)
[2018-11-07] MEDS: CHOLECALCIFEROL 1,000 UNIT TABLET PO SCH (08:55)
[2018-11-07] MEDS: SENNA/DOCUSATE TABLET PO SCH (08:56)
[2018-11-07] MEDS ORDERED: TEMPLATE NON-FORMULARY MED. (Cranberry Extract** (Cranberry**) 300 MG) PO SCH (09:00)
[2018-11-07] MEDS: CEFTRIAXONE PMX 1GM/50ML 50 ML IV SCH (11:57)
[2018-11-07] MEDS: AZITHROMYCIN 500 MG in SODIUM CHLORIDE 0.9% 250 ML IV SCH (13:12)
[2018-11-07] MEDS ORDERED: SODIUM CHLORIDE 0.9% 1,000 ML IV SCH (13:27)
[2018-11-07 14:56] VITALS: BP 156/80
[2018-11-07 19:47] VITALS: BP 134/72
[2018-11-07] MEDS: SIMVASTATIN 20 MG TABLET PO SCH (21:39)
[2018-11-08 02:11] VITALS: BP 139/63
[2018-11-08] MEDS: methylPREDNISolone SOD SUCC 125 MG/2 ML IVPush SCH (04:06)
[2018-11-08 05:37] VITALS: BP 150/72
[2018-11-08] MEDS: METOPROLOL TARTRATE 25 MG TABLET PO SCH ×2 (05:38→18:19)
[2018-11-08] MEDS: GUAIFENESIN 200 MG TABLET PO SCH ×4 (05:38→20:39)
[2018-11-08] MEDS: ASPIRIN 81 MG TABLET EC PO SCH (05:39)
[2018-11-08 06:06] LABS: MEAN CORPUSCULAR HEMOGLOBIN 28.9 pg (27.0-34.8); MEAN CORPUSCULAR HGB CONC 32.4 g/dL (32.4-35.8); MEAN CORPUSCULAR VOLUME 89.1 fL (80-100); MEAN PLATELET VOLUME 8.8 fL (7.4-10.4); PLATELET COUNT 282 x10^3/uL (130-400); RED BLOOD COUNT 3.67 x10^6/uL (3.82-5.3); RED CELL DISTRIBUTION WIDTH 14.3 % (9.6-15.2)
[2018-11-08 06:14] LABS: ALANINE AMINOTRANSFERASE 61 U/L (12-78); ALBUMIN 2.6 g/dL (3.4-5.0); ANION GAP 9 mmol/L (5-15); CALCIUM 7.8 mg/dL (8.5-10.1); CHLORIDE 107 mmol/L (98-107); CREATININE 1.73 mg/dL (0.55-1.02)
[2018-11-08 06:17] LABS: ALKALINE PHOSPHATASE 70 U/L (45-117); BILIRUBIN,TOTAL 0.2 mg/dL (0.2-1.0)
[2018-11-08 06:25] LABS: BASOPHILS # (AUTO) 0.02 x10^3/uL (0-0.1); BASOPHILS % (AUTO) 0 % (0-1); EOSINOPHILS % (AUTO) 0 % (1-7); LYMPHOCYTES # (AUTO) 0.39 x10^3/uL (1-3.4); LYMPHOCYTES % (AUTO) 3 % (22-44); MD SCAN; MONOCYTES # (AUTO) 0.24 x10^3/uL (0.2-0.8); MONOCYTES % (AUTO) 2 % (2-9); NEUTROPHILS # (AUTO) 13.08 x10^3/uL (1.8-6.8); NEUTROPHILS % (AUTO) 95 % (42-75)
[2018-11-08 07:35] VITALS: BP 161/85
[2018-11-08] MEDS: SENNA/DOCUSATE TABLET PO SCH (08:27)
[2018-11-08] MEDS: HEPARIN 5,000 UNITS/ML, 1ML SQ SCH ×3 (08:27→22:29)
[2018-11-08] MEDS: LEVOTHYROXINE 50 MCG TABLET PO SCH (08:28)
[2018-11-08] MEDS: TICAGRELOR 90 MG TABLET PO SCH ×3 (08:29→20:40)
[2018-11-08] MEDS: FLUTICASONE INH SCH (08:55)
[2018-11-08] MEDS: VILANTEROL INH SCH (08:55)
[2018-11-08] MEDS: UMECLIDINIUM INH SCH (08:55)
[2018-11-08] MEDS: CHOLECALCIFEROL 1,000 UNIT TABLET PO SCH (08:57)
[2018-11-08] MEDS: BUDESONIDE 0.5 MG/2 ML INHA INH SCH ×2 (09:00→20:33)
[2018-11-08] MEDS: ALBUTEROL SULFATE 2.5 MG/3 ML NPPB SCH ×2 (09:00→20:33)
[2018-11-08] MEDS: CEFTRIAXONE PMX 1GM/50ML 50 ML IV SCH (12:13)
[2018-11-08] MEDS: AZITHROMYCIN 500 MG in SODIUM CHLORIDE 0.9% 250 ML IV SCH (13:17)
[2018-11-08] MEDS: SODIUM CHLORIDE 0.9% 1,000 ML IV SCH (13:18)
[2018-11-08 14:49] VITALS: BP 137/77
[2018-11-08 19:42] VITALS: BP 173/72
[2018-11-08 20:06] LABS: MICROSCOPIC INDICATED
[2018-11-08 20:15] LABS: CREATININE,URINE RANDOM 16.9 mg/dL
[2018-11-08] MEDS: SIMVASTATIN 20 MG TABLET PO SCH (20:39)
[2018-11-08 20:45] LABS: OSMOLALITY,URINE 210 mOsm/kg (500-850)
[2018-11-09 02:03] VITALS: BP 171/60
[2018-11-09] MEDS: SODIUM CHLORIDE 0.9% 1,000 ML IV SCH (02:12)
[2018-11-09] MEDS: GUAIFENESIN 200 MG TABLET PO SCH ×4 (05:20→20:38)
[2018-11-09] MEDS: METOPROLOL TARTRATE 25 MG TABLET PO SCH ×2 (05:20→17:46)
[2018-11-09] MEDS: ASPIRIN 81 MG TABLET EC PO SCH (05:20)
[2018-11-09 05:22] VITALS: BP 166/80
[2018-11-09 05:36] LABS: BASOPHILS # (AUTO) 0.01 x10^3/uL (0-0.1); BASOPHILS % (AUTO) 0 % (0-1); EOSINOPHILS % (AUTO) 0 % (1-7); LYMPHOCYTES # (AUTO) 0.78 x10^3/uL (1-3.4); LYMPHOCYTES % (AUTO) 7 % (22-44); MD NO; MEAN CORPUSCULAR HEMOGLOBIN 30.1 pg (27.0-34.8); MEAN CORPUSCULAR HGB CONC 34.1 g/dL (32.4-35.8); MEAN CORPUSCULAR VOLUME 88.2 fL (80-100); MEAN PLATELET VOLUME 8.7 fL (7.4-10.4); MONOCYTES # (AUTO) 0.71 x10^3/uL (0.2-0.8); MONOCYTES % (AUTO) 7 % (2-9); NEUTROPHILS # (AUTO) 9.18 x10^3/uL (1.8-6.8); NEUTROPHILS % (AUTO) 86 % (42-75); PLATELET COUNT 250 x10^3/uL (130-400); RED CELL DISTRIBUTION WIDTH 14.9 % (9.6-15.2)
[2018-11-09 05:44] LABS: ALBUMIN 2.2 g/dL (3.4-5.0); ANION GAP 5 mmol/L (5-15); CALCIUM 7.1 mg/dL (8.5-10.1); CHLORIDE 111 mmol/L (98-107)
[2018-11-09 05:58] LABS: % IRON SATURATION 38 % (20-55); ALANINE AMINOTRANSFERASE 48 U/L (12-78); ALKALINE PHOSPHATASE 57 U/L (45-117); BILIRUBIN,TOTAL 0.7 mg/dL (0.2-1.0); CREATININE 1.95 mg/dL (0.55-1.02); IRON LEVEL 61 mcg/dL (50-170); TOTAL IRON BINDING CAPACITY 160 mcg/dL (250-450)
[2018-11-09] MEDS: HEPARIN 5,000 UNITS/ML, 1ML SQ SCH ×3 (06:54→22:30)
[2018-11-09] MEDS: TICAGRELOR 90 MG TABLET PO SCH (07:22)
[2018-11-09] MEDS: ALBUTEROL SULFATE 2.5 MG/3 ML NPPB SCH ×3 (07:39→20:56)
[2018-11-09] MEDS: BUDESONIDE 0.5 MG/2 ML INHA INH SCH ×2 (07:39→20:56)
[2018-11-09] MEDS: CHOLECALCIFEROL 1,000 UNIT TABLET PO SCH (07:53)
[2018-11-09] MEDS: LEVOTHYROXINE 50 MCG TABLET PO SCH (07:53)
[2018-11-09] MEDS: SENNA/DOCUSATE TABLET PO SCH (07:53)
[2018-11-09] MEDS: VILANTEROL INH SCH (07:54)
[2018-11-09] MEDS: FLUTICASONE INH SCH (07:54)
[2018-11-09] MEDS: UMECLIDINIUM INH SCH (07:54)
[2018-11-09 08:00] VITALS: BP 171/80
[2018-11-09] MEDS: AMLODIPINE 2.5 MG TABLET PO SCH (11:25)
[2018-11-09] MEDS: CEFTRIAXONE PMX 1GM/50ML 50 ML IV SCH (11:25)
[2018-11-09] MEDS: AZITHROMYCIN 500 MG in SODIUM CHLORIDE 0.9% 250 ML IV SCH (12:37)
[2018-11-09 14:00] VITALS: BP 164/67
[2018-11-09] MEDS: SIMVASTATIN 20 MG TABLET PO SCH (20:38)
[2018-11-09 20:45] VITALS: BP 179/100
[2018-11-09] MEDS ORDERED: CEFDINIR 300 MG CAPSULE PO SCH (21:00)
[2018-11-09] MEDS: ALBUTEROL SULFATE 2.5 MG/3 ML HHN SCH (21:30)
[2018-11-10 02:44] VITALS: BP 180/95
[2018-11-10] MEDS: ALBUTEROL SULFATE 2.5 MG/3 ML HHN SCH ×3 (03:30→14:00)
[2018-11-10] MEDS: GUAIFENESIN 200 MG TABLET PO SCH ×2 (05:22→11:00)
[2018-11-10] MEDS: ASPIRIN 81 MG TABLET EC PO SCH (05:22)
[2018-11-10] MEDS: METOPROLOL TARTRATE 25 MG TABLET PO SCH (05:23)
[2018-11-10] MEDS: HEPARIN 5,000 UNITS/ML, 1ML SQ SCH ×2 (05:24→13:54)
[2018-11-10 05:27] LABS: BASOPHILS # (AUTO) 0.01 x10^3/uL (0-0.1); BASOPHILS % (AUTO) 0 % (0-1); EOSINOPHILS % (AUTO) 0 % (1-7); LYMPHOCYTES # (AUTO) 1.05 x10^3/uL (1-3.4); LYMPHOCYTES % (AUTO) 11 % (22-44); MD NO; MEAN CORPUSCULAR HGB CONC 32.6 g/dL (32.4-35.8); MEAN CORPUSCULAR VOLUME 88.9 fL (80-100); MEAN PLATELET VOLUME 8.6 fL (7.4-10.4); MONOCYTES # (AUTO) 0.86 x10^3/uL (0.2-0.8); MONOCYTES % (AUTO) 9 % (2-9); NEUTROPHILS # (AUTO) 7.62 x10^3/uL (1.8-6.8); NEUTROPHILS % (AUTO) 80 % (42-75); PLATELET COUNT 251 x10^3/uL (130-400); RED BLOOD COUNT 3.67 x10^6/uL (3.82-5.3); RED CELL DISTRIBUTION WIDTH 14.5 % (9.6-15.2)
[2018-11-10 05:30] LABS: ALBUMIN 2.4 g/dL (3.4-5.0); ANION GAP 6 mmol/L (5-15); CALCIUM 7.3 mg/dL (8.5-10.1); CHLORIDE 108 mmol/L (98-107)
[2018-11-10 05:31] LABS: CREATININE 1.73 mg/dL (0.55-1.02)
[2018-11-10] MEDS ORDERED: LEVOTHYROXINE 50 MCG TABLET PO SCH (06:00)
[2018-11-10 07:30] VITALS: BP 157/69
[2018-11-10] MEDS: AMLODIPINE 2.5 MG TABLET PO SCH (08:31)
[2018-11-10] MEDS: SENNA/DOCUSATE TABLET PO SCH (08:31)
[2018-11-10] MEDS: FLUTICASONE INH SCH (08:32)
[2018-11-10] MEDS: VILANTEROL INH SCH (08:32)
[2018-11-10] MEDS: CHOLECALCIFEROL 1,000 UNIT TABLET PO SCH (08:32)
[2018-11-10] MEDS: UMECLIDINIUM INH SCH (08:32)
[2018-11-10] MEDS ORDERED: AZITHROMYCIN 500 MG TABLET PO SCH (09:00)
[2018-11-10] MEDS: BUDESONIDE 0.5 MG/2 ML INHA INH SCH (09:00)
[2018-11-10] MEDS ORDERED: CALCITRIOL 0.25 MCG CAPSULE PO SCH (09:00)
[2018-11-10] MEDS ORDERED: BUDESONIDE 0.5 MG/2 ML INHA NPPB SCH (09:00)
[2018-11-10] MEDS ORDERED: PRED20TA PO ×2 (13:43)
[2018-11-10] MEDS ORDERED: CEFD300C37 PO (13:43)
[2018-11-10] MEDS ORDERED: AMLO2.5T3 PO (13:43)
== END 2018-11-10 16:10 | disposition home or self-care (01) | DRG 871 ==
LOC: ED 10:35 → EDIP 12:57 → 3NE 14:24
PROVIDERS: ADMIT Internal Medicine; ATTEND Internal Medicine
DX: A41.9 Sepsis, unspecified organism (principal); J15.9 Unspecified bacterial pneumonia; J96.21 Acute and chronic respiratory failure with hypoxia; J44.1 Chronic obstructive pulmonary disease with (acute) exacerbation; I13.0 Hypertensive heart and chronic kidney disease with heart failure and stage 1 through stage 4 chronic kidney disease, or unspecified chronic kidney disease; E87.1 Hypo-osmolality and hyponatremia; E44.1 Mild protein-calorie malnutrition; J44.0 Chronic obstructive pulmonary disease with (acute) lower respiratory infection; N17.9 Acute kidney failure, unspecified; D64.9 Anemia, unspecified; E78.00 Pure hypercholesterolemia, unspecified; E78.5 Hyperlipidemia, unspecified; I25.10 Atherosclerotic heart disease of native coronary artery without angina pectoris; N18.3 Chronic kidney disease, stage 3 (moderate); N25.0 Renal osteodystrophy; I50.9 Heart failure, unspecified; Z95.5 Presence of coronary angioplasty implant and graft; Z99.81 Dependence on supplemental oxygen; Z87.891 Personal history of nicotine dependence; I25.2 Old myocardial infarction; Z68.27 Body mass index [BMI] 27.0-27.9, adult
CPT/HCPCS: 36415; 71045; 76770; 80053; 80069; 81001; 82306; 82436; 82570; 82728; 83540; 83550; 83605; 83735; 83880; 83935; 83970; 84100; 84133; 84145; 84156; 84300; 84484; 84550; 85025; 87040; 87070; 87205; 87400; 93005; 94640; 96365; 99285; G0378; J0456; J0696; J1644; J7613; J7626; J2930; J7030; J7050; J7512